=== PATIENT | female | born 2000 | race Caucasian/White ===

== ENCOUNTER 2020-08-11 22:49 | Emergency (ER) | payer OTHER ==
[2020-08-11] MEDS ORDERED: KETOROLAC TROMETHAMINE INJ/PF 30 MG/1 ML SDV IM ONE (22:55)
--- NOTE | 2020-08-11 22:57 | ER Document Report ---
ED Medical Screen (RME) - General Chief Complaint: Chest Pain Stated Complaint: CHEST PAIN Time Seen by Provider: 08/11/20 22:51 Mode of Arrival: Ambulatory Information source: Patient - HPI Patient complains to provider of: Abdominal pain/chest pain Notes: 08/11/20 22:55 Patient here with complaints of severe epigastric pain started just prior to her arrival here. She states is now rating up into her chest. States it hurts to take a deep breath. She does not feel short of breath otherwise. She denies any nausea, vomiting, diarrhea. No fever. No dysuria or hematuria. No prior abdominal surgeries. No history of heart disease, hypertension, high cholesterol, diabetes. She denies smoking, drug use or alcohol use. Exam: Patient appears uncomfortable and is tearful. Lungs clear and equal throughout. Mild tachycardia. Tenderness palpation of the epigastric and right upper quadrant with some guarding. An initial examination was made on the patient as part of the triage process, and it was determined a more comprehensive evaluation was necessary. Initial orders were placed and patient was transferred to another provider in the ED who assumed care and finished evaluation and plan.
[2020-08-11 23:59] LABS: ABSOLUTE LYMPHOCYTES (AUTO) 2.2 10^3/uL (0.5-4.7); ABSOLUTE MONOCYTES (AUTO) 0.4 10^3/uL (0.1-1.4); ABSOLUTE NEUT (AUTO) 2.3 10^3/uL (1.7-8.2); BASOPHILS % (AUTO) 0.8 % (0-2); EOSINOPHILS % (AUTO) 0.7 % (0-6); HEMATOCRIT 32.6 % (36.0-47.0); LYMPHOCYTES % (AUTO) 44.2 % (13-45); MEAN CORPUSCULAR HEMOGLOBIN 25.9 pg (27.0-33.4); MEAN CORPUSCULAR HGB CONC 33.7 g/dL (32.0-36.0); MEAN CORPUSCULAR VOLUME 77 fl (80-97); MONOCYTES % (AUTO) 8.1 % (3-13); PLATELET COUNT 206 10^3/uL (150-450); RED BLOOD COUNT 4.24 10^6/uL (3.72-5.28); RED CELL DISTRIBUTION WIDTH 14.2 % (11.5-14.0); SEGMENTED NEUTROPHILS % (AUTO) 46.2 % (42-78); TOTAL CELLS COUNTED % (AUTO) 100 %
[2020-08-12 00:02] LABS: ALBUMIN 4.4 g/dL (3.5-5.0); ALKALINE PHOSPHATASE 52 U/L (38-126); ANION GAP 6 (5-19); ASPARTATE AMINO TRANSFERASE 24 U/L (14-36); BILIRUBIN,DIRECT 0.2 mg/dL (0.0-0.4); BILIRUBIN,TOTAL 0.3 mg/dL (0.2-1.3); BLOOD UREA NITROGEN 10 mg/dL (7-20); CALCIUM 9.5 mg/dL (8.4-10.2); CARBON DIOXIDE 24 mmol/L (22-30); CHLORIDE 105 mmol/L (98-107); GLUCOSE 96 mg/dL (75-110); POTASSIUM 3.7 mmol/L (3.6-5.0); TOTAL PROTEIN 6.9 g/dL (6.3-8.2)
[2020-08-12 00:19] LABS: APPEARANCE,URINE CLEAR; BILIRUBIN,URINE NEGATIVE (NEGATIVE); COLOR,URINE STRAW; GLUCOSE, URINE NEGATIVE (NEGATIVE); KETONES,URINE NEGATIVE (NEGATIVE); LEUKOCYTE ESTERASE,URINE NEGATIVE (NEGATIVE); NITRITE,URINE NEGATIVE (NEGATIVE); PROTEIN,URINE NEGATIVE (NEGATIVE); URINE SPECIFIC GRAVITY 1.009; UROBILINOGEN,URINE NEGATIVE mg/dL (<2.0)
--- NOTE | 2020-08-12 00:27 | RADIOLOGY REPORT (SQ) ---
Ultrasound right upper quadrant on 08/11/2020 at 11:43 PM CLINICAL INDICATION: Right upper quadrant pain COMPARISON: None FINDINGS: Multiple sonographic images are obtained throughout the right upper quadrant, both transverse and sagittal images are obtained. Visualized aorta is unremarkable. Visualized pancreas is unremarkable. Visualized liver is homogeneous without focal liver lesion or evidence of intrahepatic biliary ductal dilatation. Right kidney shows no hydronephrosis. No free fluid is noted in the right upper quadrant. Common duct measures 3 mm which is within normal limits mitigating against obstruction of the biliary tree. The gallbladder is contracted. This gives an appearance of mild gallbladder wall thickening. No gallstones or pericholecystic fluid is noted. Technologist noted a positive sonographic Valiente's sign and please correlate clinically. IMPRESSION: Contracted gallbladder that may just be related to the patient not being properly n.p.o. If there is high clinical concern for acalculous cholecystitis or chronic cholecystitis consider repeat exam when the patient is n.p.o. and/or follow-up hepatobiliary scan.
--- NOTE | 2020-08-12 01:02 | RADIOLOGY REPORT (SQ) ---
CHEST X-RAY 2 view on 08/12/2020 at 12:34 AM CLINICAL INDICATION: Chest pain COMPARISON: None FINDINGS: The lungs are clear. Cardiac, hilar and mediastinal contours are within normal limits. Pulmonary vascularity is within normal limits. No bony abnormality is noted. IMPRESSION: No active disease.
[2020-08-12] MEDS ORDERED: HYDROMORPHONE HCL INJ/PF 2 MG/ML AMPULE IV ONE (03:07)
[2020-08-12] MEDS ORDERED: NORMAL SALINE 1000 ML 1,000 ML IV ONE (03:08)
[2020-08-12] MEDS ORDERED: ONDANSETRON HCL INJ/PF 4 MG/2 ML SDV IV ONE (03:08)
--- NOTE | 2020-08-12 03:11 | ER Document Report ---
ED General - General Chief Complaint: Chest Pain Stated Complaint: CHEST PAIN Time Seen by Provider: 08/11/20 22:51 Primary Care Provider: EASTON CHANDRA MD [HONORARY] - Follow up as needed Mode of Arrival: Ambulatory - [facility] Context: Chief Complaint: [Chest, abdominal and pelvic pain] [This is a 19-year-old female who presents complaining of sudden onset chest pain that started approximately 30 minutes prior to arrival. Patient states that she was in town and driving home to [place] when she had sudden onset of pain. Patient states that she has noticed that the pain has moved from her chest down into her abdomen and her pelvic region. ] History obtained from [patient] Symptoms began:[30 minutes prior to arrival] Onset: [Sudden] Timing: [While driving home] Quality: [Sharp] Intensity: [5 out of 5] Location: [Chest abdomen and pelvis] Radiation: [Yes, pain radiates from her chest down into her abdomen and pelvis] ] Aggravating factors: [none] Relieving factors: [none] [Denies] SOB [Denies] nausea [Denies] vomiting [Denies] sweats [Denies] fever [Denies] cough [Denies] calf or leg swelling or pain - Related Data Allergies/Adverse Reactions: No Known Allergies Allergy (Unverified 08/12/20 04:31) Past Medical History - General Information source: Patient - Social History Smoking Status: Never Smoker Family History: Reviewed & Not Pertinent Review of Systems - Review of Systems Notes: Review of systems as below unless otherwise stated in HPI. CONSTITUTIONAL [No] fever, [No] chills. EYES [No] eye pain. ENT [No] URI symptoms, [No] sore throat, [No] ear pain. CARDIOVASCULAR Positive chest pain, [No] palpitations, [No] edema. RESPIRATORY [No] Cough, [No] SOB, [No] wheezing. GASTROINTESTINAL Positive abdominal pain, [No] nausea, [No] Diarrhea, [No] Vomiting, [No] constipation, [No] melena, [No] rectal bleeding. GENITOURINARY [No] dysuria, [No] urinary frequency, [No] hematuria, [No] urinary urgency, [No] vaginal discharge, [No] vaginal bleeding. Positive pelvic pain MUSCULOSKELETAL [No] Back pain. SKIN [No] Rash. NEUROLOGIC [No] Headache, [No] recent seizures, [No] paralysis,[No] parathesias. ENDOCRINE [No] polyuria. HEMO/LYMPATIC [No] easy brusing PSYCHIATRIC [No] depression. Physical Exam - Vital signs Vitals: Temp Pulse Resp BP Pulse Ox 98.9 F 92 17 128/79 H 100 08/11/20 23:09 08/11/20 23:09 08/11/20 23:09 08/11/20 23:09 08/11/20 23:09 - Notes Notes: CONSTITUTIONAL [Vital signs reviewed, Patient appears uncomfortable, Alert and oriented X 3, Normal stature.] HEAD [Atraumatic, Normocephalic.] EYES [Eyes are normal to inspection, No discharge from eyes, Extraocular muscles intact, Sclera are normal, Conjunctiva are normal.] ENT [External ears normal to inspection, Nose examination normal, Mouth normal to inspection.] NECK [Normal ROM, No jugular venous distention, No meningeal signs, ] RESPIRATORY CHEST [Chest is nontender, Breath sounds normal, No respiratory distress.] CARDIOVASCULAR [RRR, No murmurs, Normal S1 S2, No rub, No gallop.] ABDOMEN [Abdomen is nontender, No pulsatile masses, No other masses, Bowel sounds normal, No distension, No peritoneal signs, No hernias.] BACK [There is no CVA Tenderness, There is no tenderness to palpation, Normal inspection.] UPPER EXTREMITY [Inspection normal, No cyanosis, No clubbing, No edema, LOWER EXTREMITY [Inspection normal, No cyanosis, No clubbing, No edema, No calf tenderness, NEURO [No focal motor deficits, No focal sensory deficits, Speech normal.] SKIN [Skin is warm, Skin is dry, Skin is normal color.] PSYCHIATRIC [Normal affect. ] Course - Re-evaluation Re-evalutation: Differential diagnosis: Chest wall pain, acute infectious process, viral syndrome Medical decision making: Patient states she has had episodes of pain like this intermittently for the past couple months especially in her pelvic region. Patient has not had a pelvic ultrasound or a CT of the abdomen done. Will check lab work CT abdomen pelvis and pelvic ultrasound. Patient's chest x-ray appears unremarkable. Patient's EKG also appears unremarkable. 08/12/20 Patient's test results including her abdominal CT and her pelvic ultrasound are unrevealing in terms of the etiology for the pain she is having. At this point, going to recommend anti-inflammatory medication as first-line for her symptoms and give the patient a to go pack of [place] for pain above me on what the anti- inflammatory medication is able to treat. Results of ED MSE discussed with patient. All questions were answered prior to discharge. Emergency signs and symptoms, reasons to return to the emergency department discussed with patient. - Vital Signs Vital signs: Temp Pulse Resp BP Pulse Ox 98.9 F 64 18 120/65 98 08/11/20 23:09 08/12/20 07:00 08/12/20 07:00 08/12/20 07:00 08/12/20 07:00 - Laboratory Results Result Diagrams: 08/11/20 23:38 08/11/20 23:38 Laboratory Results Interpreted: 08/11/20 08/11/20 08/11/20 23:38 23:38 23:38 Hgb 11.0 L Hct 32.6 L MCV 77 L MCH 25.9 L RDW 14.2 H Sodium 135.0 L Urine Blood SMALL H Critical Laboratory Results Reviewed: No Critical Results Attending or Supervising Physician who Reviewed Labs: MIGUEL ACOSTA IV - Radiology Results Critical Radiology Results Reviewed: No Critical Results Attending or Supervising Physician who Reviewed Radiology: MIGUEL ACOSTA IV - EKG Interpretation by Me Additional EKG results interpreted by me: 08/12/20 06:49 EKG obtained on 08/11/2020 at 2254 hrs. was interpreted by this MD. Findings: Normal sinus rhythm, rate 94, normal axis, WA interval appears to be within normal limits, P waves preceding QRS complexes, QRS complexes appear narrow, QTC is 441, there are no obvious patterns of ST segment elevation, depression or reciprocal changes seen to suggest acute myocardial ischemia or infarction. There is no prior EKG available for comparison. Impression: Normal sinus rhythm with nonspecific ST segments. Discharge - Discharge Clinical Impression: Acute chest pain, Acute abdominal pain, Acute pain in female pelvis Condition: Stable Disposition: HOME, SELF-CARE Instructions: Abdominal Pain ([facility]), Chest Pain of Unclear Cause ([facility]) Additional Instructions: Return to the Emergency Department without delay if any worse. HOME CARE INSTRUCTIONS & INFORMATION: Thank you for choosing us for your medical needs. We hope you're satisfied with the care you received. After you leave, you must properly care for your problem and, at the same time, observe its progress. Any condition can change. Some illnesses can change rapidly over hours or days. If your condition worsens, return to the Emergency Department or see your physician promptly. ABOUT YOUR X-RAYS AND EKG'S: If you had an EKG or X-rays taken, they have been read by the Emergency Physician. The X-rays and EKG's will also be read by a Radiologist or [employer] Mounter within 24 hours. If discrepancies are noted, you will be notified by telephone. Please be certain the ED has a correct telephone number & address where you can be reached. Also, realize that some fractures or abnormalities do not show up on initial X-rays. If your symptoms continue, see your physician. ABOUT YOUR LABORATORY TEST: If you had laboratory tests, the results have been reviewed by the Emergency Physician. Some test results (for example cultures) may not be available for several days. You will be contacted if any test result shows you need additional treatment. Please be certain the ED has a correct telephone number and address where you can be reached. ABOUT YOUR MEDICATIONS: You will receive instructions on how to take your medicine on the prescription label you receive. Additional information may be provided by the Pharmacy. If you have questions afterwards, call the ED for clarification or further instructions. Some prescribed medications may cause drowsiness. Do not perform tasks such as driving a car or operating machinery without consulting your Pharmacist. If you feel you need a refill of pain medication, your condition will need re-evaluation. Please do not call for a refill of any medication. ABOUT YOUR SIGNATURE: Signature of this document acknowledges to followin. Understanding that you received emergency treatment and that you may be released before al medical problems are known or treated. Please be certain the ED has a correct phone number & address where you can be reached. 2. Acknowledgement that you will arrange for follow-up care as recommended. 3. Authorization for the Emergency Physician to provide information to your follow-up Physician in order to maximize your care. AT ANY TIME, IF YOUR SYMPTOMS CHANGE SIGNIFICANTLY OR WORSEN OR YOU DEVELOP NEW SYMPTOMS, RETURN TO THE EMERGENCY DEPARTMENT IMMEDIATELY FOR RE-EVALUATION. OUR GOAL IS TO PROVIDE EXCELLENT MEDICAL CARE! WE HOPE THAT WE HAVE MET YOUR EXPECTATIONS DURING YOUR EMERGENCY DEPARTMENT VISIT AND THAT YOU FEEL YOU HAVE RECEIVED EXCELLENT CARE! Referrals: EASTON CHANDRA MD [HONORARY] - Follow up as needed
--- NOTE | 2020-08-12 05:00 | RADIOLOGY REPORT (SQ) ---
Ultrasound pelvis transvaginal on 08/12/2020 CLINICAL INDICATION: Pelvic pain COMPARISON: None FINDINGS: Multiple sonographic images are obtained throughout the pelvis by transvaginal approach, both transverse and sagittal images are obtained. Small amount of free fluid is noted in the pelvis that is likely physiologic. The uterus measures approximately 6.6 x 2.9 x 4.7 cm. Intrauterine device appears in good position in the endometrium. The endometrial stripe measures 3 mm which is within normal limits. Uterine myometrium appears homogeneous. The right ovary measures approximately 2.6 x 2.0 x 1.6 cm. Flow is demonstrated within the right ovary. The left ovary measures approximately 2.8 x 2.6 x 2.0 cm. Flow is demonstrated within the left ovary. No adnexal mass or fluid collection is noted. IMPRESSION: Unremarkable exam.
--- NOTE | 2020-08-12 05:03 | RADIOLOGY REPORT (SQ) ---
CT abdomen and pelvis with contrast on 08/12/2020 at 4:21 AM CLINICAL INDICATION: Generalized abdominal pain TECHNIQUE: Multiple axial images are obtained throughout the abdomen and pelvis following the administration of IV contrast, 67 mL of Omnipaque 350contrast was administered intravenously without complication. This exam was performed according to our departmental dose-optimization program, which includes automated exposure control, adjustment of the mA and/or kV according to patient size and/or use of iterative reconstruction technique. Total DLP is 715.76 mGy*cm. COMPARISON: None FINDINGS: Abdomen: The lung bases are clear. The solid abdominal organs are unremarkable. There is no abdominal adenopathy. There is no free fluid or free air within the abdomen. The abdominal portion of the GI tract is unremarkable. Pelvis: Intrauterine device is noted in the uterus. Pelvic organs appear unremarkable by CT. Small amount of free fluid in the pelvis is likely physiologic. There is no pelvic adenopathy. The pelvic portion of the GI tract including the appendix is unremarkable. No bony abnormality is noted. IMPRESSION: No acute abnormality.
[2020-08-12] MEDS ORDERED: HYDROCODONE/ACETAMINOPHEN 5-325 MG (6 TAB/ER DISP) PO PRN (06:48)
[2020-08-12 07:10] VITALS: BP 120/65
--- NOTE | 2020-08-12 11:39 | EKG REPORT ---
SEVERITY:- NORMAL ECG - SINUS RHYTHM : Confirmed by: Fidelina Connolly MD 12-Aug-2020 11:38:58
== END 2020-08-12 07:09 | disposition home or self-care (01) ==
LOC: ER 22:49
DX: R07.9 Chest pain, unspecified (principal); R10.9 Unspecified abdominal pain; R10.2 Pelvic and perineal pain; R07.89 Other chest pain
CPT/HCPCS: 93005; 99285; 96361; 96374; 96375; 36415; 83690; 84703; 85025; 80053; 81001; 71046; 76705; 76830; 93976; 74177; 93010; J1170; J2405; J7030